=== PATIENT | male | born 1965 | race Caucasian/White ===

== ENCOUNTER → 2017-03-05 | Outpatient (CLI) | payer BC ==
[~2017-03-05] MED LIST: HYDR-5688 PO; HYDR1SOL10 PO
--- NOTE | 2017-03-05 08:31 | EXERCISE STRESS TEST ---
REFERRING PHYSICIAN: Armando Johnson DO. FINDINGS: The patient exercised during a standard [facility] protocol for a period of 10 minutes, achieving 90% of his maximal predicted heart rate. The patient's baseline EKG was normal sinus with poor R-wave progression in the precordial leads. There were no significant ST segment changes during exercise or recovery. There were no arrhythmias noted during exercise or recovery. The patient's baseline blood pressure was 141/70, which ernesto to a maximum of 240/70 during exercise. Patient did not report symptoms during exercise. Heart rate recovery was normal. Treadmill score was 10, which is low risk. IMPRESSION: 1. Diagnostic exercise treadmill test without evidence of reducible ischemia. 2. Hypertensive response to exercise.
== END | disposition home or self-care (01) ==
LOC: C.CPL 07:06
PROVIDERS: ATTEND Family Medicine
DX: R07.9 Chest pain, unspecified (principal); Z82.49 Family history of ischemic heart disease and other diseases of the circulatory system